=== PATIENT | female | born 1945 | race Caucasian/White ===

== ENCOUNTER 2017-01-19 16:13 | Observation (INO) | payer OTHER ==
[~2017-01-19] VITALS: Ht 162.6 cm; Wt 96.2 kg
[~2017-01-19 16:13] MED LIST: ATENOLOL50 MG PO
[2017-01-19 17:27] LABS: HEMATOCRIT 40.2 % (36.0-46.0); MCH 29.9 PG (29.0-34.0); MCHC 32.3 G/DL (30.0-36.0); MCV 92.4 FL (83-99); MEAN PLAT.VOLUME 9.9 uM^3 (9.5-12.4); PLATELET COUNT 218 K/uL (156-360); RBC DIS.WIDTH-CV 13.3 % (11.8-14.6); RBC DIS.WIDTH-SD 45.7 % (39-53); RED BLOOD COUNT 4.35 M/uL (3.80-5.20); WHITE BLOOD COUNT 6.1 K/uL (4.1-10.2)
[2017-01-19 17:36] LABS: CHLORIDE 107 mEq/L (99-109); POTASSIUM 3.8 mEq/L (3.7-5.4); SODIUM 143 mEq/L (136-147)
[2017-01-19 17:37] LABS: GLUCOSE 97 mg/dL (70-99)
[2017-01-19 17:39] LABS: ANION GAP 9 MEQ/L (2-14)
[2017-01-19 17:41] LABS: GFR ESTIMATE (CALCULATED) 58 mL/min/
[2017-01-19 17:42] LABS: UREA NITROGEN (BUN) 18 mg/dL (9-23)
[2017-01-19 17:47] LABS: TROP-I INTERPRETATION NEGATIVE; TROPONIN-I < 0.01 ng/mL (0.0-0.30)
[2017-01-19] MEDS ORDERED: PANTOPRAZOLE SO40 MG PO (20:16)
[2017-01-19] MEDS ORDERED: LOSARTAN-HCTZ1 EAC1 PO (20:17)
[2017-01-19] MEDS ORDERED: ATENOLOL25 MG PO (20:17)
[2017-01-19] MEDS ORDERED: ATORVASTATIN CA20 MG PO (20:17)
[2017-01-19] MEDS ORDERED: LO-DOSE ASPIRIN81 M2 PO (20:18)
[2017-01-19] MEDS ORDERED: CENTRUM SILVER1 EAC4 PO (20:20)
[2017-01-19] MEDS ORDERED: VITAMIN D31000 UNI2 PO (20:21)
[2017-01-19] MEDS ORDERED: QUESTRAN POWDE378 GM PO (20:23)
[2017-01-19 22:17] VITALS: BP 121/69
[2017-01-19 23:38] VITALS: BP 124/63
[2017-01-19 23:43] LABS: TROP-I INTERPRETATION NEGATIVE; TROPONIN-I 0.01 ng/mL (0.0-0.30)
[2017-01-20 00:27] LABS: TOTAL BILIRUBIN 0.7 mg/dL (0.0-1.0)
[2017-01-20 00:28] LABS: ALKALINE PHOSPHATASE 103 IU/L (3-129)
[2017-01-20 00:30] LABS: DIRECT BILIRUBIN 0.3 mg/dL (0.0-0.3)
[2017-01-20 00:31] LABS: LIPASE 14 U/L (1.0-51.0)
[2017-01-20 04:25] VITALS: BP 132/80
[2017-01-20 05:52] LABS: TROP-I INTERPRETATION NEGATIVE; TROPONIN-I < 0.01 ng/mL (0.0-0.30)
[2017-01-20 07:41] VITALS: BP 160/83
[2017-01-20 11:48] VITALS: BP 142/82
[2017-01-20] MEDS ORDERED: NITROSTAT0.4 MG SL (13:54)
== END 2017-01-20 16:08 | disposition home or self-care (01) ==
LOC: EME 16:13 → EDOF 20:39 → ENRESERV 20:40 → 5WEST 22:12
PROVIDERS: Physician Assistant
DX: R07.9 Chest pain, unspecified (principal); R94.31 Abnormal electrocardiogram [ECG] [EKG]; I10 Essential (primary) hypertension; K21.9 Gastro-esophageal reflux disease without esophagitis; E78.5 Hyperlipidemia, unspecified; Z87.891 Personal history of nicotine dependence; Z82.49 Family history of ischemic heart disease and other diseases of the circulatory system; K44.9 Diaphragmatic hernia without obstruction or gangrene; Z98.890 Other specified postprocedural states; Z96.652 Presence of left artificial knee joint; Z90.49 Acquired absence of other specified parts of digestive tract; Z79.82 Long term (current) use of aspirin; E66.3 Overweight
CPT/HCPCS: 71020; 71275; 80048; 80076; 83690; 84484; 85027; 85379; 93005; 99281; 99285; G0378; J7030